=== PATIENT | female | born 1960 | race Caucasian/White ===

== ENCOUNTER 2024-12-30 19:04 | Emergency (ER) | payer OTHER, SELFPAY ==
[2024-12-30 19:08] VITALS: PULSE 59; RESP 14; TEMP 36.6; O2SAT 98; BMI 26.6
[2024-12-30 21:07] VITALS: BP 146/87; PULSE 52; RESP 14; O2SAT 99
--- NOTE | 2024-12-31 04:08 | ED.WOUNDLAC ---
HPI - Wound/Laceration General Chief Complaint: Wound/Laceration Stated Complaint: thumb laceration Source: patient Mode of arrival: Ambulatory Patient History Social History Smoking Status: Former smoker Smoking Status: Former smoker Exam Initial Vital Signs Initial Vital Signs: Vital Signs Temperature 97.8 F 12/30/24 19:08 Pulse Rate 59 L 12/30/24 19:08 Respiratory Rate 14 12/30/24 19:08 Pulse Oximetry 98 12/30/24 19:08 Oxygen Delivery Method Room Air 12/30/24 19:08 Course Vital Signs Vital signs: Vital Signs - 8 hr 12/30/24 21:07 Pulse Rate 52 L Respiratory Rate 14 Blood Pressure 146/87 H Pulse Oximetry 99 Oxygen Delivery Method Room Air Discharge Plan Departure Patient Disposition: Left Without Being Seen Clinical Impression: Patient left after triage
== END 2024-12-31 | disposition left against medical advice (07) ==
PROVIDERS: Emergency Provider Emergency Medicine
DX: S61.012A Laceration without foreign body of left thumb without damage to nail, initial encounter (principal)
CPT/HCPCS: 99281

== ENCOUNTER → 2025-02-18 08:33 | Outpatient (CLI) | payer BC, SELFPAY | LOC: LAB 08:36 | PROVIDERS: PCP Family Medicine; Visit Provider Family Medicine | DX: R35.0 Frequency of micturition (principal) | CPT/HCPCS: 87086 ==

== ENCOUNTER → 2025-02-18 09:13 | Outpatient (CLI) | payer BC, SELFPAY ==
[2025-02-18 09:57] LABS: Add Manual Diff / Slide Review NO; Basophils Absolute Auto 0 /uL (0-100); Basophils Percent Auto 0.8 % (0-2); Eosinophils Absolute Auto 100 /uL (0-450); Eosinophils Percent Auto 2.3 % (2-4); Hematocrit 42.2 % (36-46); Hemoglobin 14.3 g/dL (12.0-16.0); Lymphocytes Absolute Auto 1400 /uL (1100-4500); Lymphocytes Percent Auto 36.2 % (25-40); Mean Corpuscular HGB Conc 33.7 % (30-36); Mean Corpuscular Hemoglobin 32.3 PG (26-34); Mean Corpuscular Volume 95.6 fL (80-100); Monocytes Absolute Auto 300 /uL (0-900); Monocytes Percent Auto 7.9 % (3-14); Neutrophils Absolute Auto 2100 /uL (1500-7000); Neutrophils Percent Auto 52.8 % (50-75); Platelet Count 188 X10^3/uL (150-400); Red Blood Cell Count 4.42 X10^6/uL (4.0-5.2); Red Cell Distribution Width 13.9 % (11.6-14.8)
[2025-02-18 10:37] LABS: Alanine Aminotransferase 28 IU/L (<35); Albumin 4.4 g/dL (3.5-5.0); Albumin Globulin Ratio 1.8 (1.0-2.8); Alkaline Phosphatase 77 U/L (38-126); Aspartate Aminotransferase 40 IU/L (14-36); BUN Creatinine Ratio 28.6 (6-22); Bilirubin Total 0.9 mg/dL (0.2-1.3); Blood Urea Nitrogen 22 mg/dL (7-17); Calcium 10.2 mg/dL (8.4-10.2); Carbon Dioxide 23 mmol/L (22-32); Chloride 106 mmol/L (98-107); Cholesterol 216 mg/dL (140-199); Estimated Glomerular Filt Rate > 60 mL/min (>60); Globulin 2.5 g/dL (1.7-4.1); Glucose 112 mg/dL (80-110); HEMOLYSIS < 15 (0-50); Potassium 4.7 mmol/L (3.4-5.1); Sodium 136 mmol/L (137-145); Total Protein 6.9 g/dL (6.3-8.2); Triglycerides 56 mg/dL (35-150)
[2025-02-18 10:47] LABS: HDL Cholesterol 116 mg/dL (40-60); LDL Cholesterol Calculated 89 mg/dL (<100)
[2025-02-18 11:07] LABS: TSH w/ Reflex to FT4 2.32 uIU/mL (0.47-4.68)
== END ==
PROVIDERS: PCP Family Medicine; Referring Provider Family Medicine; Visit Provider Family Medicine
DX: Z13.6 Encounter for screening for cardiovascular disorders (principal); R63.5 Abnormal weight gain; R35.0 Frequency of micturition
CPT/HCPCS: 36415; 80053; 80061; 84443; 85025; 87086

== ENCOUNTER → 2025-03-15 11:41 | Outpatient (CLI) | payer BC, SELFPAY ==
--- NOTE | 2025-03-15 11:42 | DI.MG.S_ITS ---
MM screening mammo BI: 03/15/2025. BI-RADS: 1 CLINICAL: 65-year old female for bilateral screening mammogram. Tyrer-Cuzick lifetime risk of 11.6%. Current reported family history of breast cancer: mother. PRIOR EXAMS: No prior examinations available. MAMMOGRAPHY TECHNIQUE: 2D and 3D (tomosynthesis) digital mammographic views obtained, with additional images as needed for full coverage. Current study was also evaluated with a Computer Aided Detection (CAD) system. DENSITY C. The breasts are heterogeneously dense, which may obscure small masses. MAMMOGRAPHY FINDINGS Bilateral: No suspicious mass, asymmetry, microcalcification, or other abnormality seen. IMPRESSION: * No evidence of malignancy. RECOMMENDATIONS Bilateral * Annual screening mammography. OVERALL ASSESSMENT CATEGORY BI-RADS-1: Negative. The [employer] recommends annual screening mammography beginning at age 40 for women with average risk of breast cancer. ELECTRONICALLY SIGNED: Eloy Condon M.D. on 03/15/2025 at 06:40:38 PM PT Interpreting Station ID: [id number]
== END ==
PROVIDERS: PCP Family Medicine; Referring Provider Family Medicine; Visit Provider Family Medicine
DX: Z12.31 Encounter for screening mammogram for malignant neoplasm of breast (principal); Z80.3 Family history of malignant neoplasm of breast; R92.333 Mammographic heterogeneous density, bilateral breasts
CPT/HCPCS: 77063; 77067

== ENCOUNTER → 2025-03-18 11:16 | Outpatient (CLI) | payer BC, SELFPAY ==
[2025-03-18 12:04] LABS: Add Manual Diff / Slide Review NO; Basophils Absolute Auto 0 /uL (0-100); Basophils Percent Auto 0.5 % (0-2); Eosinophils Absolute Auto 100 /uL (0-450); Eosinophils Percent Auto 1.5 % (2-4); Hematocrit 40.1 % (36-46); Hemoglobin 13.7 g/dL (12.0-16.0); Lymphocytes Absolute Auto 1500 /uL (1100-4500); Mean Corpuscular HGB Conc 34.2 % (30-36); Mean Corpuscular Hemoglobin 32.4 PG (26-34); Mean Corpuscular Volume 94.9 fL (80-100); Monocytes Absolute Auto 400 /uL (0-900); Monocytes Percent Auto 8.9 % (3-14); Neutrophils Absolute Auto 2300 /uL (1500-7000); Neutrophils Percent Auto 53.1 % (50-75); Platelet Count 214 X10^3/uL (150-400); Red Blood Cell Count 4.23 X10^6/uL (4.0-5.2); Red Cell Distribution Width 13.9 % (11.6-14.8); White Blood Cell Count 4.3 X10^3/uL (4.5-11.0)
[2025-03-18 12:10] LABS: Hemoglobin A1C% w Est Avg Glu 5.1 % (4.0-6.0)
== END ==
PROVIDERS: Family Provider Family Medicine; PCP Family Medicine; Referring Provider Family Medicine; Visit Provider Family Medicine
DX: D72.819 Decreased white blood cell count, unspecified (principal); R73.9 Hyperglycemia, unspecified
CPT/HCPCS: 36415; 83036; 85025

== ENCOUNTER → 2025-04-21 14:23 | Outpatient (CLI) | payer BC, SELFPAY ==
[2025-04-21 19:37] LABS: Appearance Urine UA CLEAR; Bilirubin Urine UA NEGATIVE (NEGATIVE); Color Urine UA YELLOW; Glucose Urine UA NEGATIVE (Negative); Ketones Urine UA NEGATIVE (NEGATIVE); Leukocyte Esterase Urine UA NEGATIVE (NEGATIVE); Nitrite Urine UA NEGATIVE (Negative); Occult Blood Urine UA NEGATIVE (Negative); Protein Urine UA NEGATIVE (Negative); Urobilinogen Urine UA 0.2 E.U./dL (0.2)
[2025-04-21 19:58] LABS: Bacteria Urine None Seen; RBC Urine None Seen (0-5/HPF); Squamous Epithelial Cell Urine None Seen (0-5/HPF); Urine Volume 10mL (spun); WBC Urine None Seen (0-5/HPF)
[2025-04-21 20:00] LABS: Culture Indicated Urine Cult Not Indicated
== END ==
PROVIDERS: Family Provider Family Medicine; PCP Family Medicine; Visit Provider Obstetrics & Gynecology Gynecology
DX: R33.9 Retention of urine, unspecified (principal)
CPT/HCPCS: 81001

== ENCOUNTER → 2025-05-13 12:29 | Outpatient (CLI) | payer BC, SELFPAY ==
[2025-05-13 12:41] LABS: Add Manual Diff / Slide Review NO; Basophils Absolute Auto 0 /uL (0-100); Basophils Percent Auto 0.5 % (0-2); Eosinophils Absolute Auto 100 /uL (0-450); Eosinophils Percent Auto 1.9 % (2-4); Hematocrit 40.5 % (36-46); Hemoglobin 13.8 g/dL (12.0-16.0); Lymphocytes Absolute Auto 1400 /uL (1100-4500); Lymphocytes Percent Auto 25.8 % (25-40); Mean Corpuscular Hemoglobin 32.5 PG (26-34); Mean Corpuscular Volume 95.6 fL (80-100); Monocytes Absolute Auto 500 /uL (0-900); Monocytes Percent Auto 8.6 % (3-14); Neutrophils Absolute Auto 3400 /uL (1500-7000); Neutrophils Percent Auto 63.2 % (50-75); Platelet Count 223 X10^3/uL (150-400); Red Blood Cell Count 4.24 X10^6/uL (4.0-5.2); Red Cell Distribution Width 12.8 % (11.6-14.8); White Blood Cell Count 5.3 X10^3/uL (4.5-11.0)
[2025-05-13 13:06] LABS: HEMOLYSIS < 15 (0-50); Potassium 4.5 mmol/L (3.4-5.1)
[2025-05-13 13:08] LABS: Alanine Aminotransferase 21 IU/L (<35); Albumin 4.2 g/dL (3.5-5.0); Albumin Globulin Ratio 1.8 (1.0-2.8); Alkaline Phosphatase 85 U/L (38-126); Aspartate Aminotransferase 29 IU/L (14-36); BUN Creatinine Ratio 32.6 (6-22); Bilirubin Total 0.9 mg/dL (0.2-1.3); Blood Urea Nitrogen 28 mg/dL (7-17); Calcium 9.9 mg/dL (8.4-10.2); Carbon Dioxide 23 mmol/L (22-32); Chloride 105 mmol/L (98-107); Estimated Glomerular Filt Rate > 60 mL/min (>60); Globulin 2.3 g/dL (1.7-4.1); Glucose 113 mg/dL (70-99); Sodium 135 mmol/L (137-145); Total Protein 6.5 g/dL (6.3-8.2)
== END ==
PROVIDERS: PCP Family Medicine; Referring Provider Family Medicine; Visit Provider Family Medicine
DX: D72.819 Decreased white blood cell count, unspecified (principal); R63.5 Abnormal weight gain
CPT/HCPCS: 36415; 80053; 85025

== ENCOUNTER 2025-06-07 06:28 | Day surgery (SDC) | payer BC, SELFPAY ==
--- NOTE | 2025-05-27 14:18 | P.HPOB_ITS ---
History of Present Illness History of Present Illness Narrative: Suzanne Malik is a 65 year old female admitted for vaginal hysterectomy , uterosacral ligament vaginal vault suspension, anterior colporrhaphy, cystoscopy, possible mid urethral sling Date of procedure: June 07, 2025 Preoperative diagnosis:? 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 Laparoscopic-assisted vaginal hysterectomy, bilateral salpingo-oophorectomy Uterosacral ligament vaginal vault suspension Anterior colporrhaphy Cystoscopy Possible mid urethral sling Postop Meds Tylenol 1000 mg, ?3 times a day? Motrin 600 mg (under age 65 yr) ,? 3 times a day Oycodone 5 mg,? take 1 pill every 4-6 hr as needed, # 15? Colace,? 1 pill BID, for constipation CC: Vaginal and uterine prolapse HPI: 65-year-old female who presents for evaluation of above complaint.?? She reports onset of symptoms several months ago.?? She considers this a? Moderate? problem. She was previously seen by Dr. Blue, who asked her to see me for consultation related to her prolapse and risk of potential postoperative stress incontinence. There is a plan to do surgery with me assisting as needed for vault suspension or sling. Prior exam with cystocele to the introitus, cervix to-1, rectocele to -1. She reports a vaginal bulge that she sees and feels. Thinks it is about the size of a lemon. She has symptoms of vaginal bulge, heaviness, incomplete bladder emptying, and occasional need to splint for bowel movements. She declines a pessary and desires surgery. She has overactive bladder symptoms with nocturia times 3-4 and day voids every 2 hours. She often fluid restricts. She denies urge incontinence or stress incontinence. She is at risk of developing stress incontinence due to correction of her prolapse. She has daily bowel movements and does not typically have to strain. She does sometimes splint for bowel movements. She often uses MiraLax to help with bowel movements. Prior tubal ligation, prior umbilical hernia repair with mesh. She is active and healthy. Not presently sexually active. . Lives with her daughter and daughter's here . prior hyst -no -x2 c-sec -0 ? Pelvic Floor Review of Systems: (HPI) Stress Urinary Incontinence symptoms (QIANA): 0 Triggers include: 0 ? Urge Incontinence symptoms (Urge UI): 0 Triggers include: 0 ? Pads: She wears 0 Overactive Bladder symptoms (OAB):? ? Frequency: Every 2 hours Nocturia: 3-4 ? Urgency: Moderate Prior incontinence treatment includes:? Medical: No ? Surgical:? No ? Kegels:?? Yes Physical therapy:?No? Pessary:?No? Diet / Fluids: Fluid restriction:? No Excessive fluids:?No Pain symptoms:? Painful bladder:???No Dysuria:???No Dyspareunia:? No Dysmenorrhea:? No Urinary Risk Factors UTI?s, recurrent: No Hematuria:? No Kidney Stones:?No? Tobacco use:? No Pelvic Organ Prolapse (POP) symptoms:?? Bulge: Yes Pressure and /or Heaviness: Yes Splint for defecation or voiding: Yes Voiding dysfunction: Abnormal stream:?No Strain to void:? No Incomplete emptying: Yes Voiding difficulty:?No Retention:??? No Bowel Function: Constipation: No Strain to defecate: No Fiber: No Laxatives: Uses MiraLax as needed Fecal Incontinence:? Liquid stool:? No Solid stool:?No?? Sexually active:?No Incontinence with sex:? No ? General Review of Systems: Constitutional, CV, Endo, Musc-skel, Eyes, Cancer, Skin, Breast, GI, Heme/Lymph, Psych, Urinary, Neuro, Manufacturing Coordinator, Resp, Sexual:??? Pertinent positives listed above in HPI All others reviewed and negative. . . PFSH Medical History Incomplete bladder emptying OAB (overactive bladder) Urethral hypermobility Uterine prolapse Cystocele, midline Prolapse of female pelvic organs Vision disorder Mumps Chicken pox Glaucoma Skin cancer Surgical History Anesthesia History of hernia repair History of tubal ligation Family History Father Cancer History of heart disease Hypertension Mental health problem Prostate cancerMother Cancer History of heart disease Hypertension Breast cancer Liver disease Medications estradiol 10 mcg vaginal tablet (Vagifem) 10 mcg vaginal 2XW #30 tabs 02/18/25 [Rx Confirmed 04/21/25] magnesium oxide 300 mg PO DAILY 02/18/25 [History Confirmed 04/21/25] sodium,potassium,mag sulfates 17.5 gram-3.13 gram-1.6 gram oral soln (Suprep Bowel Prep Kit) See Rx Instructions PO .COMPLEX #354 mL 04/15/25 [Rx Confirmed 04/21/25] Allergies none Exam Narrative: Vitals 04/21/2513:53 Height 5 ft 4 in Weight 160 lb BMI 27.4 BP 126/80 Blood Pressure Location Lt brachial Position Sitting Pulse 90 Pulse Source Monitor Temp 97.4 F L Temp Source Temporal Artery Scan Pulse Oximetry (%) 97 Oxygen Delivery Method room air General: healthy, alert, coherent, no acute distress, cooperative, nontoxic Pulmonary: normal breathing, no distress Abdomen: soft, no mass, non-distended, no hernia, non-tender Skin: Scars on Abd: Prior umbilical hernia repair with mesh Vulva: Normal labia majora, labia minora, introitus, and clitoris, non-tender Urethra meatus: normal, no discharge Perineum: Normal, non-tender Urethra: No mass, non-tender Bladder: no mass, non-tender Vagina: No lesions, no discharge, mild atrophy, non-tender Prolapse stage III cystocele, uterus, severe urethral hypermobility Levators: Non-tender, Cervix: Normal, No lesions, no discharge, non-tender Uterus: normal size, non-tender Bimanual: no mass, no adnexal mass, non-tender Anus: No lesion, non-tender, no hemorrhoid Empty Cough Stress test: Neg PVR: 100 mL by catheter Urethral angle hypermobile: Yes, severe Pelvic Organ Prolapse: Yes POP-Q Exam: Aa: -1 Ba: +4 Ap: -2 Bp: -2 C: +1 D: -5 TVL: 9 GH: 3 PB: 3.5 Introitus size: 2 fingerbreadths Cystocele stage: 3 Rectocele stage: 1 Uterine/Vault Prolapse Stage: 2 Assessment & Plan (1) Cystocele, midline: Status: Acute (2) Uterine prolapse: Status: Acute (3) Urethral hypermobility: Status: Acute (4) OAB (overactive bladder): Status: Acute (5) Incomplete bladder emptying: Status: Acute Assessment and Plan 1. Pelvic Organ Prolapse - Stage 3, cystocele and uterus.? This diagnosis and its etiology was discussed with the patient.? Treatment options were discussed including: expectant management, pessary trial, and surgical intervention. We briefly discussed risks and benefits of surgery. All surgery for prolapse is not 100% successful and there is a chance of recurrence or failure. [She declines a Pessary Trial for Prolapse she desires surgery my recommendation = , vaginal hysterectomy , uterosacral ligament vaginal vault suspension, anterior colporrhaphy, cystoscopy, possible mid urethral sling see below for counseling 2. Urethral hypermobility, severe She is at risk for postoperative stress incontinence from the prolapse repair. Studies show that in women with severe prolapse of the anterior vaginal wall, 25% will have significant stress incontinence, following prolapse repair surgery. So her risk of finding stress incontinence, as below, is 25%. Will plan to diagnose stress incontinence intraoperatively by filling the bladder with 200-300 cc of fluid, and then using a crede maneuver to see if there is leakage of fluid from the urethra. If there is leakage, then stress incontinence will be diagnosed, and she will be treated with a mid urethral sling. 3. Possible Stress Urinary Incontinence with urethral hypermobility:? This diagnosis was discussed with the patient. The etiology was explained. Treatment options were discussed including expectant management, pelvic floor exercises, pessary trial, and surgical intervention (mid-urethral sling, Patel urethropexy, P-V sling, Sara urethral plication, urethral bulking injection).? Risks and benefits of surgery were briefly outlined. We discussed that she Might be a candidate for a Midurethral Sling as treatment of her stress incontinence. Success rate of being dry from stress incontinence is about 80-85%; another 10-15% of patients are markedly improved but not cured;? 1-2% will fail, and 1-2% will need the sling cut because it is too tight.? The risk of temporary urinary retention requeiring temporary catheterization is about 15-20%; risk of urinary retention requiring sling release procedure is about 1-2%, as noted above.? We discussed the small 1-3% of mesh erosion as well as the small risk of de varsha urgency.? This procedure is not designed to treat Urge Incontinence symptoms; however, 30-50% of patients with overactive bladder/ urgency urinary incontinence will have improvement in these symptoms, in 30% these symptoms will stay the same, and in 20-30% these symptoms will worsen. 4. Mild overactive bladder and mild incomplete bladder emptying, with postvoid residual 100 cc It is highly likely that these 2 conditions are related to her stage III cystocele. They likely will both improve with treatment of her prolapse. Will follow and treat postoperatively as needed. Surgical Counselling Note Patient seen for surgical counselling.? She desires surgical repair. Please see? H & P for exam and discussion. Date of procedure: June 07, 2025 Preoperative diagnosis:? 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 Laparoscopic-assisted vaginal hysterectomy, bilateral salpingo-oophorectomy Uterosacral ligament vaginal vault suspension Anterior colporrhaphy Cystoscopy Possible mid urethral sling Postop Meds Tylenol 1000 mg, ?3 times a day? Motrin 600 mg (under age 65 yr) ,? 3 times a day Oycodone 5 mg,? take 1 pill every 4-6 hr as needed, # 15? Colace,? 1 pill BID, for constipation Patient counseled extensively about the Risks, Benefits, and Alternatives to surgery.? She was offered the opportunity to ask any questions, and all questions were answered. ? Surgical Risks include: Bleeding, Hemorrhage, Transfusion, Infection (especially wound or bladder), Injury to adjacent organs (especially bladder, ureter, bowel, blood vessels, nerves), Postop or Chronic Pain, need for Reoperation, and Life-threatening event (especially M.I., CVA, PE, DVT). Procedure Risks include: Failure to Cure condition, Recurrence of condition months or years later, Urinary incontinence, Voiding dysfunction or Urinary Retention with prolonged catheter use, Poor wound healing, Erosions of any mesh or graft used, Dyspareunia, Vaginal scarring or narrowing, Need for additional surgery (immediate or delayed).? The expected cure and improvement and failure rates were discussed. Patient counseled to avoid the following for 6 weeks after surgery: (1) Impact sports (like running or jumping), walking and stairs OK (2) Lifting over 20# (3) Sexual intercourse No limits after 6 weeks. ? Good exercise tolerance, > 4 Mets. Her current medications were reviewed, and instructions given over which to use and which to discontinue before surgery.? Post-operative care instructions reviewed.? We discussed post-operative pain: Pain should be in the mild-moderate range, but can be moderate-severe for the first few days.?? Prescriptions will typically be given for (1) acetaminophen (Tylenol) and (2) non-steroidal anti-inflammatory drug (NSAID, like Motrin or Naprosyn), use both together, around the clock. Prescription will also be given for a (3) narcotic pain medication. Use the narcotic as needed, as a booster to the Tylenol and NSAID. You might need 0-4 narcotic pills a day typically. The narcotic will only be needed for a few days.?? Gradually use less of the narcotic, but continue the Tylenol and NSAID.? After a few days, the narcotic should no longer be needed, and only the Tylenol and NSAID will be needed.? Warm packs or cold packs can also be used for pain.??Do not drive for as long as you are using the narcotic pain medication? - this should only be a few days.?? Constipation is associated with use of narcotic pain medications, and can be improved with use of a stool softener, or fiber, or a mild laxative.? All of her questions were answered Oh Betancourt MD UroGynecology & Pelvic Reconstructive Surgery [facility] Medical History (Updated 04/22/25 @ 13:41 by Sofi Myles MD) Incomplete bladder emptying OAB (overactive bladder) Urethral hypermobility Uterine prolapse Cystocele, midline Prolapse of female pelvic organs Vision disorder Mumps Chicken pox Glaucoma Skin cancer Surgical History (Updated 03/08/25 @ 19:45 by Rebecca Gallardo) Anesthesia History of hernia repair History of tubal ligation Family History (Updated 03/08/25 @ 19:47 by Rebecca Gallardo) Father Cancer History of heart disease Hypertension Mental health problem Prostate cancer Mother Cancer History of heart disease Hypertension Breast cancer Liver disease Meds Home Medications and Allergies Home Medications ?Medication ?Instructions ?Recorded ?Confirmed ?Type magnesium oxide 300 mg PO DAILY 02/18/25 History sodium,potassium,mag sulfates 17.5 See Rx Instructions PO .COMPLEX 04/15/25 05/17/25 Rx gram-3.13 gram-1.6 gram oral soln #354 mL (Suprep Bowel Prep Kit) estradiol 10 mcg vaginal tablet 10 mcg vaginal 2XW #30 tabs 04/27/25 05/17/25 Rx (Vagifem) ibuprofen 600 mg tablet 600 mg PO TID postop pain #3 0 tabs 05/17/25 05/17/25 Rx oxycodone 5 mg tablet 5 mg PO Q6H PRN postop pain #15 05/17/25 05/17/25 Rx tabs Allergies Allergy/AdvReac Type Severity Reaction Status Date / Time No Known Drug Allergies Allergy Verified 05/17/25 11:31 Assessment & Plan Time-Based Coding :: [TOTAL MINUTES] spent with patient and on the chart (including review of chart, obtaining history, exam, reviewing outside data, placing orders, documenting exam and treatment plan, and counseling patient) on [DATE].
[2025-06-02 12:46] VITALS: BMI 27.4
[2025-06-07] VITALS (12 sets, daily range): BP systolic 94–136; BP diastolic 55–87; PULSE 55–75; RESP 12–20; TEMP 36.1–37.2; O2SAT 96–100; BMI 27.9
--- NOTE | 2025-06-07 | PATH_ITS ---
[facility] Accession Number: [id number] No. of containers..01 Tissue . 01 Material submitted: . uterus - UTERUS,CERVIX,BILATERAL FALLOPIAN TUBES, AND BILATERAL OVARIES . 01 Diagnosis: UTERUS, CERVIX, BILATERAL FALLOPIAN TUBES AND BILATERAL OVARIES: Hysterectomy and bilateral salpingo-oophorectomy. Uterine weight: 41 grams. Cervix: No pathologic abnormalities; negative for dysplasia or malignancy. Endometrium: Inactive endometrium with cystic atrophy. Negative for atypia, hyperplasia, or malignancy. Myometrium: Two small intramural leiomyomas up to 0.2 cm in greatest dimension, with degenerative changes and dystrophic calcifications. Benign bilateral fallopian tubes and paratubal cysts. Evidence of previous tubal ligation also present. Benign bilateral ovaries without pathologic abnormalities. [facility] 06/10/2025 1338 Local . 01 Electronically signed: . Maura Balderas MD, Pathologist NPI- [id number] . 01 Gross description: . Received in formalin with two identifiers and uterus, cervix, bilateral fallopian tubes and bilateral ovaries, is an intact uterus (41 grams, 6.8 cm superior to inferior, 4.1 cm medial to lateral, 2.4 cm anterior to posterior) with attached cervix (4.0 x 4.0 cm), left fallopian tube (5.0 x 0.7 cm), left ovary (2 grams, 2.1 x 1.3 x 0.8 cm), right fallopian tube (6.1 x 0.6 cm), right ovary (3 grams, 2.4 x 1.5 x 0.9 cm). . The ectocervix is wright and wrinkled with a patulous os 0.9 cm in diameter. The anterior paracervical margin is inked blue while the posterior paracervical margin is inked black. The serosa is wright smooth and unremarkable. The endocervical canal has wright herringbone mucosa and measures 2.6 cm in length. The endometrial cavity is 2.0 cm from cornu to cornu, and 2.8 cm in length. The endometrium is wright and velvety averaging less than 0.1 cm thick. The myometrium is wright and trabecular measuring up to 1.1 cm in maximum thickness with two well-circumscribed white whorled calcified nodules ranging from 0.1 to 0.2 cm in greatest dimension located intramurally. . Both tubes have violaceous, smooth serosa with cystic structures up to 0.8 cm in greatest dimension filled with wright serous fluid. The lumen of both tubes is discontinuous with a curcular band consistent with previous tubal ligation. The remaining lumen is stellate and unremarkable. . Both ovaries have a wright, cerebriform, unremarkable external surface. The right ovary is inked blue while the left ovary is inked green. Sectioning reveals an unremarkable physiologic cut surface. . Manager Trainee sections are submitted as follows: A1: Anterior cervix. A2: Posterior cervix. A3: Anterior full thickness section. A4: Posterior full thickness section with nodules. A5: Left fallopian tube. A6: Left ovary. A7: Right fallopian tube. A8: Right ovary. ([id number]) /KAI 06/09/2025 1201 Local . 01 Pathologist provided ICD-10: N81.9, N81.11, N36.41 . 01 CPT . 213148 Specimen Comment: A courtesy copy of this report has been sent to [facility] Performed at: [address] [address], [place], [place] [id number] MD Tonio Velasquez MD Phone: [phone]
[2025-06-07] MEDS: ACETAMINOPHEN 325 MG TABLET 975 MG PO (06:56)
[2025-06-07] MEDS: GABAPENTIN 300 MG CAPSULE PO (06:56)
[2025-06-07] MEDS: LACTATED RINGERS 1,000 ML 42 ML IV ×2 (06:56→10:26)
[2025-06-07] MEDS: SCOPOLAMINE 1 PATCH TOP (06:59)
[2025-06-07] MEDS: PHENAZOPYRIDINE 100 MG TABLET 200 MG PO (06:59)
--- NOTE | 2025-06-07 07:28 | PM.PREOP ---
Pre-operative Note Interval Note History & Physical reviewed/Exam performed by Physician: Yes Changes to H&P: No
[2025-06-07] MEDS: CEFAZOLIN 2 GM/100 ML PREMIX 100 ML IV (08:00)
--- NOTE | 2025-06-07 08:23 | SUR.OPER ---
Lithotomy on padded OR bed. [place] Pad Positioner under torso. Head on pillow, arms padded and tucked at sides. PURPLE STRAP ACROSS CHEST. Legs secured in padded yellow fins stirrups.
[2025-06-07] MEDS: LIDOCAINE 1% 20 ML INJ (08:33)
[2025-06-07] MEDS: BUPIVACAINE 0.25% (PF) VIAL 30 ML INJ (08:33)
[2025-06-07] MEDS: ONDANSETRON 4 MG/2 ML INJ IV (10:59)
[2025-06-07] MEDS: OXYCODONE IR 5 MG TABLET PO (11:00)
--- NOTE | 2025-06-07 11:10 | PM.GYNOP.1 ---
Operative Date/Time/Diagnoses Date of procedure: 06/07/25 Time of procedure: 07:45 Pre-op diagnosis: stage 3 cystocele and uterine prolapse Post-op diagnosis: same Procedure & Clinicians Procedure: Procedures Operation Date: 06/07/25 07:45 Actual Procedure Side Surgeon p Laparoscopic Assisted Vaginal Hysterectomy with bilateral salpingo-oophorectomy Not Applicable Oh Betancourt MD s Anterior cystocele Repair Not Applicable Oh Betancourt MD s cystoscopy Oh Betancourt MD Operative Notes Findings: Operative Note Surgeon:? Oh Betancourt MD Senior Data Mining Analyst:?? Breanna Blue MD Pre-Op Diagnosis:?? Stage III prolapse, cystocele, uterus, urethral hypermobility Post-Op Diagnosis:?? [Same Procedure:?? laparoscopy assisted vaginal hysterectomy, bilateral salpingo oophorectomy anterior colporrhaphy uterosacral ligament vaginal vault suspension cystoscopy Findings (brief): 1. EUA with POP as noted on preop exam. . laparoscopy with normal intra-abdominal findings, small ovaries, small uterus, all normal. 3 ports placed. Laparoscopy used to cauterize and release the ovaries and tubes 2. vaginal hysterectomy in usual fashion. Elongated cervix. small uterus 3. USVS with 2 sutures of 0-PDS on each side.? Excellent apical support when done.? Cystoscopy with bilateral ureteral jets noted.? 4. Anterior colporrhaphy in usual fashion. Running suture of 2-0 Vicryl followed by mattress sutures of 2-0 Vicryl 5. Bladder filled to 300 cc. No leak of fluid through the urethra with pressure against the bladder, crede. no need for a sling. ? Date of Surgery:? 06/07/25 Complications:? [none Specimens:? uterus, cervix, tubes, ovaries Anesthesia Technique:?? [General endotracheal Estimated Blood Loss (mls):? 100 Blood Replacement (mls):? [none Drains:? [Reese Condition:? [Stable Procedure in detail: After consent was confirmed, the patient was taken to the operating room and placed under general anesthesia without incident.? Sequential compression devices were in place and active.? She received perioperative antibiotics.? She was then prepped and draped in the usual sterile fashion after placement in the dorsal lithotomy position using the José Luis stirrups.? A Reese catheter was placed.? prior to the vaginal surgery, laparoscopy was done. ?Attention was turned to the abdomen. All 3 trocar sites were injected with 0.25% Marcaine with epinephrine prior to incision. An umbilical 5?mm port was placed, as a 5 mm incision was made, the [employer] scope and trocar were inserted into the abdomen, and then pneumoperitoneum was achieved, reaching a pressure of about 12, with 2-3 liters of CO2 gas. ? 2 additional 5 mm ports were placed, along the same line across the abdomen: ?? right lower quadrant, left lower quadrant?under direct visualization atraumatically. ?The patient was placed into Trendelenberg. ? the camera was inserted through the umbilical port. The grasper through the right port, the power seal through the left port. The left tube and ovary were grasped and then the adnexal vessels on the left side were cauterized and cut sequentially down to the round ligament. The procedure was repeated on the right side. The laparoscopic equipment was removed and the abdomen was deflated and the incisions were closed with an interrupted suture of 3-0 Vicryl and then Dermabond. Next the vaginal surgery was done ? A weighted speculum was placed in the vagina and the cervix was grasped with a tenaculum. The cervix was circumferentially injected with 10-20 cc of 0.5% lidocaine / epinephrine 1:200,000. A circumferential incision was made with electrocautery through the vaginal mucosa and carried down to the underlying cervical stroma. The posterior peritoneum was entered sharply and a retractor was placed. Curved Tiera clamps and 0-vicryl sutures were used. The uterosacral ligaments were clamped, cut, and ligated bilaterally, and then tagged for use later in the case. The anterior peritoneum entered sharply, and a reese catheter was placed.? The cardinal ligaments were clamped, cut, and ligated bilaterally. The uterine vessels were clamped, cut, and ligated bilaterally. The broad ligaments were clamped, cut, and ligated bilaterally. The speciimen was removed: ovaries, tubes, cervix and uterus were removed. Inspection of all pedicles was completed and hemostatis was assured. ? A large laparotomy surgical sponge was placed into the pelvis and a Troy retractor was used to elevate the sponge and bowel to expose the pelvic sidewalls and utero-sacral ligaments.? Tension was placed on the previously tagged left Utero-Sacral ligament, and 2 sutures of 0-PDS were placed through the U-S ligament, just above the ischial spine, and tagged for use later.? The same procedure was done on the right U-S ligament.? Cystoscopy was performed to confirm ureteral patency with a 70 degree lens. The bladder and ureters were normal and bilateral ureteral efflux with pyridium was seen, first without and then with traction on the U-S ligament suspension sutures, confirming ureteral patency.? The large sponge was removed.?? Attention was then turned to the anterior vaginal wall. The anterior vaginal mucosa was grasped with Allis clamps and was injected with 10-20 cc of 0.5% lidocaine / epinephrine 1:200,000.? A midline incision was made with a scalpel, from the U-V junction to the apex. The vaginal mucosa was dissected off of the underlying pubocervical fascia until the sidewalls were reached.?? The bladder fascia was plicated with running 2-0 vicryl, and then the vaginal mucosa was plicated with horizontal mattress sutures of 2-0 vicryl. Excess anterior vaginal mucosa was trimmed and the incision was closed with 2-0 vicryl. ? The 2 Left U-S ligament suspension sutures were passed through the left side of the vaginal apex, approximately at the left apical sidewall at the tagged left utero-sacral ligament, then about 1 -2 cm medial. The same procedure was done on the Right side. The vaginal cuff was closed with 2 running, locked sutures of 0-vicryl. The U-S ligament suspension sutures were tied, elevating the vaginal apex several centimeters deep into the pelvis. The Reese catheter was removed. Cystoscopy was performed to confirm ureteral patency with a 70 degree lens. The bladder and ureters were normal and bilateral ureteral efflux with pyridium was seen, confirming ureteral patency. The bladder was filled to 300 cc. A crede maneuver was done, with pressure against the abdominal wall, there was no leaking of fluid from the urethra. Therefore stress incontinence was not diagnosed. Therefore a sling was not indicated. The Reese catheter was reinserted. Sponge, needle and instrument count was correct.? The patient tolerated the procedure well and was taken to the recovery room in stable condition. Oh Betancourt MD UroGynecology & Pelvic Reconstructive Surgery [place], [place] Applied: catheter
--- NOTE | 2025-06-07 15:27 | SUR.PHASEII ---
Instillation of 300ml NS at 1340 and DC of reese per MD order. Pt rested and then able to void 25ml. 1430 Dr Betancourt saw patient. OK for patient to continue to try to void. Plan for patient to walk and hydrate. Pt drank coffee. Up in BR. Still no void but states she feels like she may soon and wants to walk a bit more and drink more coffee.
--- NOTE | 2025-06-07 15:58 | SUR.PHASEII ---
Pt up to BR. No void. Drinking coffee. Dr Betancourt saw patient. Plan for 1 more attempt. If not void, place reese. Order for Urojet lidocaine. Pt to DC own cath at home by cutting it and then removing it early 06/09/25 and then call office by 12-1pm to speak with nurse and report voiding.
--- NOTE | 2025-06-07 17:25 | SUR.PHASEII ---
1630 Pt up to BR. Voided 120ml clear yellow urine. Requested to keep trying . Bladder scan prior to void 294ml. Pt currently up in BR.
[2025-06-07] MEDS: LIDOCAINE 2% (GLYDO) 6 ML GEL TOP (18:00)
--- NOTE | 2025-06-07 18:00 | SUR.PHASEII ---
Pt unable to void greater than 220mL since normal saline instilled for voiding trial. Pt reports typically peeing a lot at home, and endorses less of an urge to pee since f/c being removed. Bladder scanned with highest 188mL residual. Dr. Betancourt consulted and at bedside. Dr. Betancourt recomends f/c placement until Saturday to prevent return to ED, which patient agrees. 14 fr f/c placed with lidocaine per pt request. Pt provided with f/c education, verified with demonstration and teach-back method. Pt advised to call on-call number after hours or Dr. Betancourt office during business hours should any additional questions arise. Instructed that surgery will call patient tomorrow for f/u.
== END 2025-06-07 18:43 | disposition home or self-care (01) ==
LOC: OR 06:29 → AC 06:36
PROVIDERS: PCP Family Medicine; Referring Provider Obstetrics & Gynecology Gynecology; Visit Provider Obstetrics & Gynecology Gynecology
PROC: 0UT9FZZ Resection of Uterus, Via Natural or Artificial Opening With Percutaneous Endoscopic Assistance (ICD-10-PCS; principal; 2025-06-07 07:45)
PROC: 0TSD0ZZ Reposition Urethra, Open Approach (ICD-10-PCS; 2025-06-07 07:45)
DX: N81.9 Female genital prolapse, unspecified (principal); N81.11 Cystocele, midline; N36.41 Hypermobility of urethra; D25.1 Intramural leiomyoma of uterus; N83.8 Other noninflammatory disorders of ovary, fallopian tube and broad ligament
CPT/HCPCS: 58552; 57240; 57283; J0690; J1100; J1171; J1885; J2250; J2405; J2704; J3010

== ENCOUNTER 2025-09-22 07:20 | Day surgery (SDC) | payer BC, SELFPAY ==
--- NOTE | 2025-09-22 | PATH_ITS ---
[facility] Accession Number: [id number] No. of containers..02 Tissue . 01 Material submitted: . PART A: colon - COLON RIGHT POLYP X 7 PART B: body - COLON, 70CM . 01 Clinical history: . A) # 1 COLD SNARE, #2 FORCEPS, #3 HOT SNARE, 2 POLYPS APC, #5 HOT SNARE, #6 COLD SNARE, #7 FORCEPS B) COLD SNARE . 01 Diagnosis: Part A: COLON RIGHT POLYP X 7: Tubular adenomas. . Part B: COLON, 70CM: Tubular adenoma. [facility] 10/04/20251720 Local . 01 Electronically signed: . Tonio Velasquez MD, Pathologist NPI- [id number] . 01 Gross description: . . . . Received two formalin-filled containers, both labeled with the patient's name: . A. In a container labeled right colon polyp 7, the specimen consists of multiple fragments of wright soft tissue which range in size from less than 0.1 cm to 0.7 x 0.5 x 0.4 cm. All fragments are totally submitted in cassette A. . B. In a container labeled 70 cm, the specimen consists of four fragments of wright soft tissue which range in size from less than 0.1 cm to 0.4 x 0.3 x 0.2 cm. All fragments are totally submitted in cassette B. ([id number]) /[facility] 10/04/20251720 Local . 01 Pathologist provided ICD-10: D12.2, D12.6 . 01 CPT . 927216, 557872 Specimen Comment: A courtesy copy of this report has been sent to [phone] Performed at: [address] [address], [place], [place] [id number] MD Tonio Velasquez MD Phone: [phone]
[2025-09-22 07:40] VITALS: BP 121/78; PULSE 64; RESP 14; TEMP 36.1; O2SAT 99
[2025-09-22] MEDS: LACTATED RINGERS 1,000 ML 42 ML IV (07:47)
--- NOTE | 2025-09-22 08:26 | PM.HP.IH.1 ---
History of Present Illness History of Present Illness Date Patient Seen: 09/22/25 Chief complaint: SDC Narrative: First colorectal cancer screening with colonoscopy [facility] Medical History (Updated 04/22/25 @ 13:41 by Sofi Myles MD) Incomplete bladder emptying OAB (overactive bladder) Urethral hypermobility Uterine prolapse Cystocele, midline Prolapse of female pelvic organs Vision disorder Mumps Chicken pox Glaucoma Skin cancer Surgical History (Updated 03/08/25 @ 19:45 by Rebecca Gallardo) Anesthesia History of hernia repair History of tubal ligation Family History (Updated 03/08/25 @ 19:47 by Rebecca Gallardo) Father Cancer History of heart disease Hypertension Mental health problem Prostate cancer Mother Cancer History of heart disease Hypertension Breast cancer Liver disease Social History household members: none Smoking Status: Former smoker alcohol intake: current Meds Home Medications and Allergies Home Medications ?Medication ?Instructions ?Recorded ?Confirmed ?Type magnesium oxide 300 mg PO DAILY 02/18/25 09/22/25 History sodium,potassium,mag sulfates 17.5 See Rx Instructions PO .COMPLEX 04/15/25 09/22/25 Rx gram-3.13 gram-1.6 gram oral soln #354 mL (Suprep Bowel Prep Kit) estradiol 10 mcg vaginal tablet 10 mcg vaginal 2XW #30 tabs 04/27/25 09/22/25 Rx (Vagifem) Allergies Allergy/AdvReac Type Severity Reaction Status Date / Time No Known Drug Allergies Allergy Verified 09/22/25 07:38 Exam Vital Signs (past 8 hours): - 09/22/25 07:40 Temperature 97 F L Pulse Rate 64 Respiratory Rate 14 Blood Pressure 121/78 Pulse Oximetry 99 Oxygen Delivery Method Room Air Oxygen Delivery Method Room Air Narrative Exam Narrative: Oropharynx free of lesions Chest clear to auscultation percussion Cardiac exam reveals no S3 or murmur Assessment & Plan Assessment & Plan narrative: Assessment need for colorectal cancer screening plan colonoscopy risks, benefits, alternatives have been explained. Time-Based Coding :: [TOTAL MINUTES] spent with patient and on the chart (including review of chart, obtaining history, exam, reviewing outside data, placing orders, documenting exam and treatment plan, and counseling patient) on [DATE]. PROFEE Wood Lathe Operator Document charge(s): No
--- NOTE | 2025-09-22 08:27 | PM.OP.COLON ---
Operative Date/Time/Diagnoses Date of procedure: 09/15/25 Time of procedure: 09:07 Pre-op diagnosis: See indications-screening Post-op diagnosis: other Procedure & Clinicians Study performed: Colonoscopy Same procedure(s) as scheduled: Yes Indications: Screening Surgeon: Shelly Santos Anesthesia Type: Other Procedure Notes Procedure in detail: After informed consent was obtained the patient was placed in left lateral decubitus position. The video colonoscope was introduced in the rectum slowly advanced cecum. Preparation was good. On slow withdrawal mucosa was carefully examined. The scope was removed. The patient tolerated procedure well. Blood loss none Complications none Sedation mac Findings 1. Significant left-sided diverticulosis 2. Cecum/right colon had several polyps numbering 7 or 8. These were removed with cold snare or forceps with a smaller ones and the 2 larger ones with hot snare. Two small ones were also treated with APC because of difficulty getting the forceps or snare around them. Most of achieved 3. 1.2 cm pedunculated polyp at 70 cm hot snared and removed We will be in touch regarding her polyp pathology but she most certainly need to have follow-up colonoscopy in 1 year Estimated Blood Loss: 0 Complications: none
[2025-09-22 09:07] VITALS: BP 101/62; PULSE 57; RESP 17; TEMP 36.3; O2SAT 97
[2025-09-22 09:10] VITALS: BP 114/80; PULSE 60; RESP 16; O2SAT 100
[2025-09-22 09:24] VITALS: BP 110/78; PULSE 62; RESP 16; O2SAT 100
== END 2025-09-22 09:35 | disposition home or self-care (01) ==
PROVIDERS: PCP Family Medicine; Referring Provider Internal Medicine Gastroenterology; Visit Provider Internal Medicine Gastroenterology
PROC: 0DJD8ZZ Inspection of Lower Intestinal Tract, Via Natural or Artificial Opening Endoscopic (ICD-10-PCS; CPT 45378; principal; 2025-09-22 08:30)
DX: Z12.11 Encounter for screening for malignant neoplasm of colon (principal); D12.2 Benign neoplasm of ascending colon; D12.6 Benign neoplasm of colon, unspecified; K57.30 Diverticulosis of large intestine without perforation or abscess without bleeding; Z87.891 Personal history of nicotine dependence
CPT/HCPCS: 45385; 45380; J2704; J7120